=== PATIENT | female | born 1960 | race Caucasian/White ===

== ENCOUNTER 2018-08-04 07:53 | Emergency (ER) | payer BC ==
[~2018-08-04] VITALS: Ht 170.2 cm; Wt 112.0 kg
[2018-08-04] MEDS ORDERED: DELTASONE20 MG (07:59)
== END 2018-08-04 10:45 | disposition home or self-care (01) ==
LOC: ER 07:53
DX: S92.512A Displaced fracture of proximal phalanx of left lesser toe(s), initial encounter for closed fracture (principal); W22.8XXA Striking against or struck by other objects, initial encounter; Y93.89 Activity, other specified; Y92.59 Other trade areas as the place of occurrence of the external cause; Y99.8 Other external cause status